=== PATIENT | male | born 1985 | race Hispanic/Latino ===

== ENCOUNTER 2018-12-14 19:57 | Emergency (ER) | payer BC ==
[2018-12-14 20:31] LABS: BASOPHILS % (AUTO) 0.4 % (0.0-5.0); HEMATOCRIT 40.5 % (42-54); MEAN CORPUSCULAR HEMOGLOBIN 27.4 pg (27.0-33.0); MEAN CORPUSCULAR HGB CONC 32.8 g/dL (32.0-36.0); MEAN CORPUSCULAR VOLUME 83.5 fL (79-99); MONOCYTES % (AUTO) 7.3 % (3.0-13.0); NEUTROPHILS % (AUTO) 56.3 % (40.0-77.0); PLATELET COUNT (AUTO) 225 K/uL (130-400); RED BLOOD CELL COUNT(AUTO) 4.85 MIL/uL (4.50-6.20); RED CELL DISTRIBUTION WIDTH 14.1 % (11.0-15.5); WHITE BLOOD COUNT (AUTO) 5.5 K/uL (4.8-10.8)
[2018-12-14 20:45] LABS: CREATININE 1.6 mg/dL (0.5-1.5); POTASSIUM 4.1 mmol/L (3.5-5.1)
[2018-12-14 20:50] LABS: ALBUMIN 4.1 g/dL (3.5-5.0); BILIRUBIN,TOTAL 0.3 mg/dL (0.2-1.0); TOTAL PROTEIN, SERUM 7.2 g/dL (6.0-8.3)
[2018-12-14 21:32] LABS: APPEARANCE,URINE Clear (CLEAR); BILIRUBIN,URINE Negative (NEGATIVE); COLOR,URINE Yellow (YELLOW); GLUCOSE, URINE (UA) Negative (NEGATIVE); KETONES,URINE Negative (NEGATIVE); LEUKOCYTE ESTERASE ,URINE Negative (NEGATIVE); NITRATE,URINE Negative (NEGATIVE); OCCULT BLOOD,URINE Negative (NEGATIVE); PROTEIN,URINE Negative (NEGATIVE); UROBILINOGEN,URINE 0.2 mg/dL (0.2-1.0)
[2018-12-14 21:41] LABS: AMPHET/METH SCREEN,URINE NEGATIVE (NEGATIVE); BARBITURATE SCREEN, URINE NEGATIVE (NEGATIVE); BENZODIAZEPINES SCREEN,URINE NEGATIVE (NEGATIVE); CANNABINOID SCREEN,URINE NEGATIVE (NEGATIVE); COCAINE SCREEN,URINE NEGATIVE (NEGATIVE); OPIATE SCREEN,URINE NEGATIVE (NEGATIVE); PHENCYCLIDINE SCREEN,URINE NEGATIVE (NEGATIVE)
== END 2018-12-15 00:30 | disposition home or self-care (01) ==
LOC: EDH 19:57
DX: R00.2 Palpitations (principal); N28.9 Disorder of kidney and ureter, unspecified; R73.9 Hyperglycemia, unspecified
CPT/HCPCS: 36415; 80053; 80305; 81003; 84484; 85025; 93005

== ENCOUNTER 2022-05-09 13:17 | Emergency (ER) | payer BC ==
[~2022-05-09] VITALS: Ht 175.3 cm; Wt 83.5 kg
[2022-05-09 13:19] VITALS: BP 125/74
[2022-05-09] MEDS ORDERED: 0.9%NACL 1000ML 1,000 ML IV ONE (13:30)
[2022-05-09 13:55] LABS: BASOPHILS % (AUTO) 0.1 % (0.0-5.0); EOSINOPHILS % (AUTO) 0.1 % (0.0-8.0); LYMPHOCYTES % (AUTO) 3.3 % (21.0-51.0); MEAN CORPUSCULAR HEMOGLOBIN 27.5 pg (27.0-33.0); MEAN CORPUSCULAR HGB CONC 34.3 g/dL (32.0-36.0); MEAN CORPUSCULAR VOLUME 80.3 fL (79-99); MONOCYTES % (AUTO) 2.7 % (3.0-13.0); NEUTROPHILS % (AUTO) 93.5 % (40.0-77.0); PLATELET COUNT (AUTO) 224 K/uL (130-400); RED BLOOD CELL COUNT(AUTO) 5.23 MIL/uL (4.50-6.20); RED CELL DISTRIBUTION WIDTH 12.4 % (11.0-15.5)
[2022-05-09 14:08] LABS: CREATININE 1.1 mg/dL (0.5-1.5); POTASSIUM 3.2 mmol/L (3.5-5.1)
[2022-05-09 14:12] LABS: ALBUMIN 4.5 g/dL (3.5-5.0)
[2022-05-09] MEDS ORDERED: IOHEXOL 350 MG/ML 100ML INFUS..BTL IV ONE (14:27)
[2022-05-09] MEDS ORDERED: FAMOTIDINE 20MG VIAL IV ONE (14:30)
[2022-05-09] MEDS ORDERED: ACETAMINOPHEN 500 MG TABLET PO ONE (14:30)
[2022-05-09] MEDS ORDERED: ONDANSETRON 4MG INJ IVP ONE (14:30)
[2022-05-09] MEDS ORDERED: MORPHINE 4 MG SYG IVP ONE (14:30)
[2022-05-09] MEDS ORDERED: POTASSIUM BICARB/CIT AC 25 MEQ TABLET.EFF PO ONE (15:00)
[2022-05-09] MEDS ORDERED: ACET-66 PO (16:18)
[2022-05-09] MEDS ORDERED: ONDA4TAB10 PO (16:18)
[2022-05-09] MEDS ORDERED: DICY20TA2 PO (16:18)
[2022-05-09] MEDS ORDERED: BACI1CAP6 PO (16:18)
[2022-05-09 16:20] LABS: APPEARANCE,URINE CLEAR (CLEAR); BILIRUBIN,URINE NEGATIVE (NEGATIVE); COLOR,URINE LIGHT-YELLOW (YELLOW); GLUCOSE, URINE (UA) NEGATIVE (NEGATIVE); KETONES,URINE 150 mg/dL (NEGATIVE); LEUKOCYTE ESTERASE ,URINE NEGATIVE Leu/uL (NEGATIVE); NITRATE,URINE NEGATIVE (NEGATIVE); OCCULT BLOOD,URINE NEGATIVE (NEGATIVE); PROTEIN,URINE 50 mg/dL (NEGATIVE); UROBILINOGEN,URINE 0.2 mg/dL (0.2-1.0)
[2022-05-09 17:18] LABS: MUCUS,URINE RARE LPF (None Seen); WBC,URINE 0-1 /HPF (0-1)
== END 2022-05-09 16:46 | disposition home or self-care (01) ==
LOC: EDH 13:17
DX: K52.9 Noninfective gastroenteritis and colitis, unspecified (principal); Z20.822 Contact with and (suspected) exposure to COVID-19
CPT/HCPCS: 74177; 99284; 96374; 96375; 87635; 96361; 80053; 83690; 85025; 87040 ×2; 87804 ×2; 83605; 81001; 36415; 93005; C9803; J3490; J7030; J2405; J2270; Q9967

== ENCOUNTER → 2023-05-11 | Outpatient (CLI) | payer BC ==
[~2023-05-11] MED LIST: ACET-66 PO; BACI1CAP6 PO; DICY20TA2 PO; GADOTERATE MEGLUMINE 10 MMOL/20 ML VIAL IV ONE; ONDA4TAB10 PO
== END | disposition home or self-care (01) ==
LOC: RAH 07:53
PROVIDERS: ATTEND Internal Medicine Gastroenterology
DX: K76.89 Other specified diseases of liver (principal); R10.10 Upper abdominal pain, unspecified; R93.2 Abnormal findings on diagnostic imaging of liver and biliary tract; N13.30 Unspecified hydronephrosis
CPT/HCPCS: 74183; A9575

== ENCOUNTER → 2025-06-08 | Outpatient (CLI) | payer BC ==
[~2025-06-08] MED LIST changes: -GADOTERATE MEGLUMINE 10 MMOL/20 ML VIAL IV ONE; +ONDA-243 PO; -ONDA4TAB10 PO
--- NOTE | 2025-06-09 06:14 | HMCIMG ---
EXAMINATION: DUPLEX ULTRASOUND EXAMINATION OF THE BILATERAL LOWER EXTREMITY ARTERIES. CLINICAL HISTORY: Pain. COMPARISON: None. FINDINGS: Peak systolic velocities within the right lower arteries are as follows: Common femoral artery: 130 cm/s. Superficial femoral artery: 93 cm/s at proximal, 90 cm/s at mid, and 102 cm/s at distal segments. Popliteal artery: 64 cm/s at proximal and 88 cm/s at distal segments. Posterior tibial artery: 90 cm/s. Anterior tibial artery: 91 cm/s. Dorsalis pedis artery: 88 cm/s. The right lower limb arteries demonstrate triphasic waveforms in all arteries. Peak systolic velocities within the left lower arteries are as follows: Common femoral artery: 95 cm/s. Superficial femoral artery: 97 cm/s at proximal, 96 cm/s at mid, and 74 cm/s at distal segments. Popliteal artery: 68 cm/s at proximal and 82 cm/s at distal segments. Posterior tibial artery: 48 cm/s. Anterior tibial artery: 84 cm/s. Dorsalis pedis artery: 68 cm/s. The left lower limb arteries demonstrate triphasic waveforms in all arteries.IMPRESSION: Both lower limb arteries demonstrate triphasic waveforms. No flow limiting lesions. /[place]
--- NOTE | 2025-06-09 06:14 | HMCIMG ---
EXAMINATION: SPECTRAL DOPPLER ULTRASOUND EXAMINATION OF THE BILATERAL LOWER EXTREMITY VEINS. CLINICAL HISTORY: Pain. COMPARISON: Prior ultrasound dated 09/10/2024. TECHNIQUE: Real-time ultrasound scan of the veins of the bilateral lower extremity with color Doppler flow, spectral waveform analysis and compression. FINDINGS: DEEP VEINS: The common femoral, superficial femoral, and popliteal veins are echolucent and compressible. There is normal color Doppler flow throughout. The visualized calf veins appear patent. SUPERFICIAL VEINS: The greater saphenous veins are patent and compressible. SOFT TISSUES: No popliteal fossa cyst or other abnormalities. IMPRESSION: No deep venous thrombosis evident in the bilateral lower extremity. No superficial thrombophlebitis in the bilateral lower extremity. /[place]
== END | disposition home or self-care (01) ==
LOC: RAH 08:22
PROVIDERS: ATTEND Internal Medicine Nephrology
DX: I77.9 Disorder of arteries and arterioles, unspecified (principal); R60.0 Localized edema
CPT/HCPCS: 93925; 93970